=== PATIENT | male | born 1965 | race Caucasian/White ===

== ENCOUNTER 2019-10-14 07:02 | Emergency (ER) | payer OTHER ==
[~2019-10-14] VITALS: Ht 182.9 cm; Wt 95.3 kg
[~2019-10-14 07:02] MED LIST: CLARITIN10 MG; FISH OIL 1,001000 M2; NEXIUM20 MG; NORCO 5-325 TA1 EACH PO; PRILOSEC 20 MG20 MG PO; UNICOMPLEX M TA1 TA1; ZOFRAN4 MG PO
[2019-10-14] MEDS ORDERED: PENICILLIN V P500 MG PO ×2 (08:03→08:05)
[2019-10-14 08:18] VITALS: BP 112/67
== END 2019-10-14 08:15 | disposition home or self-care (01) ==
LOC: ER 07:02
DX: K04.7 Periapical abscess without sinus (principal); K21.9 Gastro-esophageal reflux disease without esophagitis; Z79.899 Other long term (current) drug therapy